=== PATIENT | male | born 1930 | race Caucasian/White ===

== ENCOUNTER 2017-04-08 23:06 | Inpatient (IN) | payer MEDICARE, OTHER ==
[~2017-04-08] VITALS: Ht 182.9 cm; Wt 103.5 kg
[2017-04-08 23:24] VITALS: BP 137/61; PULSE 69; RESP 18; TEMP 97.8; O2SAT 93
[2017-04-08] MEDS ORDERED: methylPREDNISolone SOD SUCC 125 MG/2 ML VIAL IVP ONE (23:30)
[2017-04-08] MEDS ORDERED: SODIUM CHLORIDE 0.9% FLUSH 10 ML FLUSH IVF PRN (23:30)
[2017-04-08 23:33] VITALS: RESP 18; O2SAT 93
[2017-04-08 23:45] LABS: AUTOMATED NEUTROPHIL # 4.4 TH/MM3 (1.8-7.7); BASOPHIL % 0.8 % (0.0-2.0); EOSINOPHIL # 0.1 TH/MM3 (0-0.4); EOSINOPHIL % 1.2 % (0.0-4.0); HEMATOCRIT 35.3 % (39.0-51.0); HEMO FLAGS DIFF FINAL; LYMPH % 11.4 % (9.0-44.0); LYMPHOCYTE # 0.6 TH/MM3 (1.0-4.8); MEAN CELL VOLUME 88.9 FL (80.0-100.0); MEAN CORPUSCULAR HEMOGLOBIN 27.3 PG (27.0-34.0); MEAN CORPUSCULAR HGB CONC 30.7 % (32.0-36.0); MONO % 8.9 % (0.0-8.0); NEUT % 77.7 % (16.0-70.0); PLATELET COUNT 158 TH/MM3 (150-450); RED BLOOD COUNT 3.97 MIL/MM3 (4.50-5.90); RED CELL DISTRIBUTION WIDTH 20.3 % (11.6-17.2); WHITE BLOOD COUNT 5.7 TH/MM3 (4.0-11.0)
[2017-04-08] MEDS ORDERED: DIGO0.12 PO (23:56)
[2017-04-08] MEDS ORDERED: PRAV20TA2 PO (23:56)
[2017-04-08] MEDS ORDERED: DULC10SU3 RECTAL (23:56)
[2017-04-08] MEDS ORDERED: MINER RECTAL (23:56)
[2017-04-08] MEDS ORDERED: LACTCAP8 PO (23:56)
[2017-04-08] MEDS ORDERED: ASPI-110 PO (23:56)
[2017-04-08] MEDS ORDERED: FURO40TA PO (23:56)
[2017-04-08] MEDS ORDERED: TAMS0.4C4 PO (23:56)
[2017-04-08] MEDS ORDERED: META28.34 PO (23:56)
[2017-04-08] MEDS ORDERED: VITA200C3 PO (23:56)
[2017-04-08] MEDS ORDERED: MILKSUS PO (23:56)
[2017-04-08] MEDS ORDERED: ATEN50TA PO (23:56)
[2017-04-08 23:57] LABS: APTT (PATIENT) 31.6 SEC (24.3-30.1); INTERNATIONAL NORMALIZED RATIO 1.5 RATIO; PROTHROMBIN TIME - PATIENT 16.6 SEC (9.8-11.6)
--- NOTE | 2017-04-08 23:57 | RADRPT ---
EXAM DATE/TIME: 04/08/2017 23:24 [facility] COMPARISON: No previous studies available for comparison. INDICATIONS : Patient experiencing shortness of breath for two days. MEDICAL HISTORY : Chronic obstructive pulmonary disease. Congestive heart failure. Pulmonary hypertension. SURGICAL HISTORY : Pacemaker. Quadruple bypass. ENCOUNTER: Initial ACUITY: 2 days PAIN SCORE: 0/10 LOCATION: Bilateral chest FINDINGS: Cardiomegaly, bilateral effusions and consolidation in the lower lobes. Sternotomy wires and a pacer device from a left subclavian transvenous approach noted. CONCLUSION: Bilateral moderate effusions and lower lobe consolidation. Romeo Ramos MD on April 08, 2017 at 23:56 Board Certified Radiologist. This report was verified electronically.
[2017-04-09] VITALS (12 sets, daily range): BP systolic 125–139; BP diastolic 65–75; PULSE 66–72; RESP 18–22; TEMP 97.6–97.8; O2SAT 91–95
[2017-04-09 00:03] LABS: ALT (GPT) 19 U/L (12-78); ANION GAP 3 MEQ/L (5-15); AST (GOT) 15 U/L (15-37); BICARBONATE 34.4 MEQ/L (21.0-32.0); BLOOD UREA NITROGEN 46 MG/DL (7-18); CHLORIDE 110 MEQ/L (98-107); GLOMERULAR FILTRATION RATE 62 ML/MIN (>89); MAGNESIUM 2.3 MG/DL (1.5-2.5); POTASSIUM 4.5 MEQ/L (3.5-5.1); SODIUM (NA) 147 MEQ/L (136-145)
[2017-04-09] MEDS: RESP: ALBUTEROL 2.5 MG/IPRATROPIUM 0.5 MG NEB (SCH) INH (00:03)
[2017-04-09 00:07] LABS: ALKALINE PHOSPHATASE 120 U/L (45-117); TOTAL BILIRUBIN ADULT 0.5 MG/DL (0.2-1.0)
[2017-04-09] MEDS ORDERED: FUROSEMIDE 40 MG/4 ML VIAL IV PUSH ONE (00:15)
[2017-04-09 00:27] LABS: CREATINE KINASE 31 U/L (39-308)
[2017-04-09] MEDS ORDERED: RESP: ALBUTEROL 2.5 MG/IPRATROPIUM 0.5 MG NEB (SCH) NEB ONE (01:15)
[2017-04-09] MEDS ORDERED: MAGNESIUM HYDROXIDE SUSP 30 ML CUP PO PRN (01:30)
[2017-04-09] MEDS ORDERED: BISACODYL 10 MG SUPP RECTAL PRN (01:30)
[2017-04-09] MEDS ORDERED: RESP: ALBUTEROL 2.5 MG/IPRATROPIUM 0.5 MG NEB (PRN) NEB (01:45)
--- NOTE | 2017-04-09 02:57 | PD ---
HPI Chief Complaint: Respiratory Distress Time Seen by Provider: 23:57 Travel History International Travel<30 days: No Contact w/Intl Traveler<30days: No Traveled to known affect area: No History of Present Illness HPI 87-year-old male presents with shortness of breath. He cannot give me an exact timeline but he states about a day. He denies any specific chest pain or other complaints but patient is poor historian. His family states that he has history where he gets swollen and will have difficulty with his breathing. They help supplement some history. Patient denies pain PFSH Past Medical History Narrative Medical By records Atrial Fibrillation: Yes Anxiety: Yes Cardiac Catheterization: Yes Cardiovascular Problems: Yes High Cholesterol: Yes Congestive Heart Failure: Yes COPD: Yes Coronary Artery Disease: Yes Diminished Hearing: Yes Hypertension: Yes Respiratory: Yes Past Surgical History Narrative Surgical By records Cardiac Surgery: Yes (pacer) Coronary Artery Bypass Graft: Yes Social History Alcohol Use: No Tobacco Use: No Substance Use: No Allergies-Medications (Allergen,Severity, Reaction): Coded Allergies: No Known Allergies (Unverified , 04/08/17) Reported Meds & Prescriptions Reported Meds & Active Scripts Active Reported Furosemide 40 Mg Tab 40 Mg PO DAILY Fleet Oil Enema (Mineral Oil) 118 Ml Enem 1 Ea RECTAL DIRECTED PRN Milk of Magnesia Liq (Magnesium Hydroxide) 400 Mg/5 Ml Susp 30 Ml PO DAILY PRN Dulcolax Supp (Bisacodyl) 10 Mg Supp 10 Mg RECTAL DAILY PRN Tamsulosin (Tamsulosin HCl) 0.4 Mg Cap 0.4 Mg PO HS Aspirin 81 (Aspirin) 81 Mg Tabdr 81 Mg PO MO, WE, FR Atenolol 50 Mg Tab 50 Mg PO DAILY Digoxin 0.125 Mg Tab 0.125 Mg PO DAILY Pravastatin 20 Mg Tab 20 Mg PO DAILY Vitamin E 200 Unit Cap 400 Units PO DAILY Metamucil Smooth Texture (Psyllium Hydrophilic Mucilloid) 28.3 % Pow 1 Scoop PO TID PRN 1 rounded TEASPOON in 8 oz of liquid at the first sign of irregularity. Probiotic (Lactobacillus Acidophilus) 1 Cap Cap 1 Cap PO DAILY Review of Systems ROS Limitations: Poor Historian Except as stated in HPI: all other systems reviewed are Neg Physical Exam Exam Limitations: Poor Historian Narrative GENERAL: Well-nourished, well-developed patient. SKIN: Warm and dry. HEAD: Normocephalic and atraumatic. EYES: No injection or drainage. ENT: No nasal drainage noted. NECK: Supple, trachea midline. CARDIOVASCULAR: Regular rate and rhythm RESPIRATORY: Expiratory wheezing bilaterally. No accessory muscle use. GASTROINTESTINAL: Abdomen soft, non-tender, nondistended. EXTREMITIES: Edema noted to bilateral lower extremities NEUROLOGICAL: Awake. Moves all extremities. Normal speech. Data Data Last Documented VS Vital Signs Date Time Temp Pulse Resp B/P Pulse Ox O2 Delivery O2 Flow Rate FiO2 04/09/17 01:00 72 18 139/66 92 Nasal Cannula 4 04/08/17 23:24 97.8 Orders Complete Blood Count With Diff (04/08/17 23:25) Comprehensive Metabolic Panel (04/08/17 23:25) B-Type Natriuretic Peptide (04/08/17 23:25) Act Partial Throm Time (Ptt) (04/08/17 23:25) Prothrombin Time / Inr (Pt) (04/08/17 23:25) Magnesium (Mg) (04/08/17 23:25) Ckmb (Isoenzyme) Profile (04/08/17 23:25) Troponin I (04/08/17 23:25) Iv Access Insert/Monitor (04/08/17 23:25) Electrocardiogram (04/08/17 23:25) Ecg Monitoring (04/08/17 23:25) Oximetry (04/08/17 23:25) Chest, Single Ap (04/08/17 23:25) Sodium Chloride 0.9% Flush (Ns Flush) (04/08/17 23:30) Methylprednisolone So Succ Inj (Solumedr (04/08/17 23:30) Albuterol-Ipratropium Neb (Duoneb Neb) (04/08/17 23:30) Furosemide Inj (Lasix Inj) (04/09/17 00:15) Admit Order (Ed Use Only) (04/09/17 01:00) Labs Laboratory Tests Test 04/08/17 23:30 White Blood Count 5.7 TH/MM3 Red Blood Count 3.97 MIL/MM3 Hemoglobin 10.8 GM/DL Hematocrit 35.3 % Mean Corpuscular Volume 88.9 FL Mean Corpuscular Hemoglobin 27.3 PG Mean Corpuscular Hemoglobin 30.7 % Concent Red Cell Distribution Width 20.3 % Platelet Count 158 TH/MM3 Mean Platelet Volume 8.8 FL Neutrophils (%) (Auto) 77.7 % Lymphocytes (%) (Auto) 11.4 % Monocytes (%) (Auto) 8.9 % Eosinophils (%) (Auto) 1.2 % Basophils (%) (Auto) 0.8 % Neutrophils # (Auto) 4.4 TH/MM3 Lymphocytes # (Auto) 0.6 TH/MM3 Monocytes # (Auto) 0.5 TH/MM3 Eosinophils # (Auto) 0.1 TH/MM3 Basophils # (Auto) 0.0 TH/MM3 CBC Comment DIFF FINAL Differential Comment Prothrombin Time 16.6 SEC Prothromb Time International 1.5 RATIO Ratio Activated Partial 31.6 SEC Thromboplast Time Sodium Level 147 MEQ/L Potassium Level 4.5 MEQ/L Chloride Level 110 MEQ/L Carbon Dioxide Level 34.4 MEQ/L Anion Gap 3 MEQ/L Blood Urea Nitrogen 46 MG/DL Creatinine 1.12 MG/DL Estimat Glomerular Filtration 62 ML/MIN Rate Random Glucose 82 MG/DL Calcium Level 7.5 MG/DL Magnesium Level 2.3 MG/DL Total Bilirubin 0.5 MG/DL Aspartate Amino Transf 15 U/L (AST/SGOT) Alanine Aminotransferase 19 U/L (ALT/SGPT) Alkaline Phosphatase 120 U/L Total Creatine Kinase 31 U/L Troponin I 0.02 NG/ML B-Type Natriuretic Peptide 870 PG/ML Total Protein 6.1 GM/DL Albumin 2.7 GM/DL [facility] Medical Decision Making Medical Screen Exam Complete: Yes Emergency Medical Condition: Yes Medical Record Reviewed: Yes (past history confirm) Interpretation(s) CBC & BMP Diagram 04/08/17 23:30 Last 24 hours Impressions Chest X-Ray 04/08/17 5163 Signed Impressions: Service Date/Time: Saturday, April 08, 2017 23:24 - CONCLUSION: Bilateral moderate effusions and lower lobe consolidation. Romeo Ramos MD Patient has no fever or white count, effusions likely from CHF Differential Diagnosis CHF exacerbation, pneumonia, COPD exacerbation, renal failure, anemia Narrative Course Will check blood work, chest x-ray and dose with DuoNeb and Solu-Medrol and reevaluate After evaluation chest x-ray Lasix added on Patient and family updated and agree to admission, will place in cic for close monitoring Physician Communication Physician Communication dr lozada states to admit to dr mcfadden Diagnosis Primary Impression: CHF exacerbation Qualified Code: I50.9 - Acute on chronic congestive heart failure, unspecified congestive heart failure type Additional Impression: COPD exacerbation Admitting Information Admitting Physician Requests: Admit Brynn Bailey MD Apr 09, 2017 02:57
[2017-04-09] MEDS: FUROSEMIDE 40 MG/4 ML VIAL IV PUSH SCH ×2 (10:10→18:02)
[2017-04-09] MEDS: ATENOLOL 50 MG TAB PO SCH (10:11)
[2017-04-09] MEDS: PRAVASTATIN SOD 20 MG TAB PO SCH (10:11)
[2017-04-09] MEDS: TAMSULOSIN HCL 0.4 MG CAP PO SCH (10:11)
[2017-04-09] MEDS: DIGOXIN 0.125 MG TAB PO SCH (10:11)
[2017-04-09] MEDS: POTASSIUM CHLORIDE 10 MEQ CAP PO SCH ×2 (11:14→22:46)
--- NOTE | 2017-04-09 11:51 | HHI.HP ---
HPI [facility] Primary Care Physician Unknown Admission Diagnosis chf and copd exacerbation Diagnoses: Travel History International Travel<30 Days: No Contact w/Intl Traveler <30 Da: No Traveled to Known Affected Are: No History of Present Illness Is a very pleasant 87-year-old male who is well-known to the undersigned. The patient has a long history of congestive heart failure for which he sees attractions associate Dr. Escobar. He also has a history of COPD and a former smoking. He was seen by the undersigned earlier today in room C 33 at the emergency department at [place]. His son was at his bedside. The son was called from the custodial late last night because the patient was getting more and more confused and he was getting desaturated. He has been coughing with yellow sputum. He was brought into the emergency department at [place]. He was found to be in acute chronic systolic heart failure, massive fluid retention, bilateral pleural effusions and lower lobe consolidations on chest x- ray. He was started on diuretics and on antibiotics. He is very sleepy but arousable. He also is complaining of left lower quadrant abdominal pain. No documented fever. His CODE STATUS is DO NOT RESUSCITATE. Review of Systems Other Extremely weak, fatigued, dyspnea, abdominal pain mostly in the left lower quadrant, of yellow sputum, unable to ambulate at this time, 10 systems reviewed otherwise negative Past Family Social History Past Medical History Systolic heart failure Fluid retention Hard of hearing Stroke Hyperlipidemia Constipation Atrial fibrillation COPD Anxiety Deconditioning Inability to ambulate recently Past Surgical History CABG Pacemaker placement Reported Medications Reported Meds & Active Scripts Active Reported Furosemide 40 Mg Tab 40 Mg PO DAILY Fleet Oil Enema (Mineral Oil) 118 Ml Enem 1 Ea RECTAL DIRECTED PRN Milk of Magnesia Liq (Magnesium Hydroxide) 400 Mg/5 Ml Susp 30 Ml PO DAILY PRN Dulcolax Supp (Bisacodyl) 10 Mg Supp 10 Mg RECTAL DAILY PRN Tamsulosin (Tamsulosin HCl) 0.4 Mg Cap 0.4 Mg PO HS Aspirin 81 (Aspirin) 81 Mg Tabdr 81 Mg PO MO, WE, FR Atenolol 50 Mg Tab 50 Mg PO DAILY Digoxin 0.125 Mg Tab 0.125 Mg PO DAILY Pravastatin 20 Mg Tab 20 Mg PO DAILY Vitamin E 200 Unit Cap 400 Units PO DAILY Metamucil Smooth Texture (Psyllium Hydrophilic Mucilloid) 28.3 % Pow 1 Scoop PO TID PRN 1 rounded TEASPOON in 8 oz of liquid at the first sign of irregularity. Probiotic (Lactobacillus Acidophilus) 1 Cap Cap 1 Cap PO DAILY Allergies: Coded Allergies: No Known Allergies (Unverified , 04/08/17) Family History Reviewed but not contributory Social History Former smoker, no current smoking, no excessive alcohol, no illicit drug use Physical Exam Vital Signs Vital Signs Date Time Temp Pulse Resp B/P Pulse Ox O2 Delivery O2 Flow Rate FiO2 04/09/17 08:00 69 22 135/65 95 Nasal Cannula 4 04/09/17 02:51 92 Nasal Cannula 4.00 04/09/17 01:00 72 18 139/66 92 Nasal Cannula 4 04/08/17 23:33 18 93 Nasal Cannula 4 04/08/17 23:24 97.8 69 18 137/61 93 Physical Exam GENERAL: This is a pleasant, overweight, massive lower extremity edema also edema in the flanks, poorly-nourished, lethargic, well-developed patient, in no apparent distress. SKIN: No rashes, ecchymoses or lesions. Cool and dry. HEAD: Atraumatic. Normocephalic. No temporal or scalp tenderness. EYES: Pupils equal round and reactive. Extraocular motions intact. No scleral icterus. No injection or drainage. ENT: Nose without bleeding, purulent drainage or septal hematoma. Throat without erythema, tonsillar hypertrophy or exudate. Uvula midline. Airway patent. NECK: Trachea midline. No JVD or lymphadenopathy. Supple, nontender, no meningeal signs. CARDIOVASCULAR: Regular rate and rhythm , murmur present RESPIRATORY: Bilateral crackles with reduced air entry to the bases GASTROINTESTINAL: Abdomen soft, tender in both lower quadrants left more than right, bowel sounds are positive MUSCULOSKELETAL: Extremities severe edema especially lower extremities NEUROLOGICAL: Awake and alert. Cranial nerves II through XII intact. Laboratory Laboratory Tests Test 04/08/17 23:30 White Blood Count 5.7 Red Blood Count 3.97 Hemoglobin 10.8 Hematocrit 35.3 Mean Corpuscular Volume 88.9 Mean Corpuscular Hemoglobin 27.3 Mean Corpuscular Hemoglobin 30.7 Concent Red Cell Distribution Width 20.3 Platelet Count 158 Mean Platelet Volume 8.8 Neutrophils (%) (Auto) 77.7 Lymphocytes (%) (Auto) 11.4 Monocytes (%) (Auto) 8.9 Eosinophils (%) (Auto) 1.2 Basophils (%) (Auto) 0.8 Neutrophils # (Auto) 4.4 Lymphocytes # (Auto) 0.6 Monocytes # (Auto) 0.5 Eosinophils # (Auto) 0.1 Basophils # (Auto) 0.0 CBC Comment DIFF FINAL Differential Comment Prothrombin Time 16.6 Prothromb Time International 1.5 Ratio Activated Partial 31.6 Thromboplast Time Sodium Level 147 Potassium Level 4.5 Chloride Level 110 Carbon Dioxide Level 34.4 Anion Gap 3 Blood Urea Nitrogen 46 Creatinine 1.12 Estimat Glomerular Filtration 62 Rate Random Glucose 82 Calcium Level 7.5 Magnesium Level 2.3 Total Bilirubin 0.5 Aspartate Amino Transf 15 (AST/SGOT) Alanine Aminotransferase 19 (ALT/SGPT) Alkaline Phosphatase 120 Total Creatine Kinase 31 Troponin I 0.02 B-Type Natriuretic Peptide 870 Total Protein 6.1 Albumin 2.7 Result Diagram: 04/08/17 2330 04/08/17 233 Imaging Electrocardiogram showed paced rhythm with a right bundle branch block Last 24 hours Impressions Abdomen/Pelvis CT 04/09/17 0000 Signed Impressions: Service Date/Time: Sunday, April 09, 2017 14:38 - CONCLUSION: 1. Bilateral pleural effusions, bibasilar consolidation and anasarca. 2. Nonobstructing right renal stone. 3. Probable right adrenal adenoma. Maki Trimble MD Chest X-Ray 04/08/175 Signed Impressions: Service Date/Time: Saturday, April 08, 2017 23:24 - CONCLUSION: Bilateral moderate effusions and lower lobe consolidation. Romeo Ramos MD Assessment and Plan Assessment and Plan Assessment Acute on chronic systolic heart failure Bilateral pneumonia Bilateral pleural effusion Severe fluid retention Abdominal pain of an unclear etiology Management Patient has been admitted to telemetry Lasix 40 mg IV every 12 hours is ordered Albumin 12.5 gram IV every 12 hours is ordered Supplemental oxygen When necessary morphine The case was discussed at length with the patient's son his bedside The son would like to have a hospice consultation The patient has been going around in circles recently with recurrent frequent admissions for almost identical presentations With the current difficult to control of Taxol heart failure, also very poor quality of life The case was discussed with patient's nurse 45 minutes spent Discussed With: Nurse, Family Blossom Mckinney MD 15, 2017 11:50
--- NOTE | 2017-04-09 12:41 | EKG ---
Date Performed: 04/09/2017 Time Performed: 01:40:27 PTAGE: 87 years EKG: ELECTRONIC ATRIAL PACEMAKER RIGHT BUNDLE BRANCH BLOCK ABNORMAL ECG NO PREVIOUS TRACING DOCTOR: Bryson Mohan Interpretating Date/Time 04/09/2017 12:39:03
[2017-04-09] MEDS: AZITHROMYCIN INJ 500 MG in SODIUM CHLOR 0.9% 250 ML INJ 250 ML IV SCH (13:03)
[2017-04-09] MEDS: MORPHINE SULFATE 8 MG/ML INJ IV PUSH PRN ×2 (13:59→22:50)
[2017-04-09] MEDS: cefTRIAXone INJ 1,000 MG in SODIUM CHLORIDE 0.9% INJ 100 ML IV SCH (14:00)
--- NOTE | 2017-04-09 15:12 | RADRPT ---
EXAM DATE/TIME: 04/09/2017 14:38 [facility] COMPARISON: No previous studies available for comparison. INDICATIONS : Abdominal pain ORAL CONTRAST: No oral contrast ingested. RADIATION DOSE: 12.41 CTDIvol (mGy) MEDICAL HISTORY : Hypertension. Congestive heart failure. SURGICAL HISTORY : None. ENCOUNTER: Initial ACUITY: 1 day PAIN SCALE: 5/10 LOCATION: diffuse abdomen TECHNIQUE: Volumetric scanning of the abdomen and pelvis was performed. Using automated exposure control and ad justment of the mA and/or kV according to patient size, radiation dose was kept as low as reasonably achievable to obtain optimal diagnostic quality images. DICOM format image data is available electro nically for review and comparison. FINDINGS: CT Abdomen: The liver, spleen, pancreas, left kidney, left adrenal are unremarkable. There is no evid ence for any appreciable pathological adenopathy, free fluid, or bowel obstruction. Chronic vascular calcifications are present involving the aorta, iliac arteries without any significant stenosis or a neurysmal dilatations for technique. Approximate 4-5 mm nonobstructing stone is present in the right kidney. Moderate bilateral pleural effusions and bibasilar consolidation is seen. Approximate 1.7 cm right adrenal nodule is present probably an adenoma. CT pelvis: There is no evidence for mass, abscess formation, or any significant adenopathy within the pelvis. The prostate gland is inhomogeneous and measures 4.1 x 5.7 cm in AP and transverse diameters and nonspecific. There is moderate amount of stool throughout the colon. There is mild diffuse anasa rca. There are degenerative changes and possible bulging discs in the lower lumbosacral spine not mayank quately characterized. CONCLUSION: 1. Bilateral pleural effusions, bibasilar consolidation and anasarca. 2. Nonobstructing right renal stone. 3. Probable right adrenal adenoma. Maki Trimble MD on April 09, 2017 at 15:07 Board Certified Radiologist. This report was verified electronically.
[2017-04-09] MEDS: ALBUMIN HUMAN 25% 12.5 GM/50 ML BAGP IV SCH (18:02)
--- NOTE | 2017-04-09 22:41 | MB ---
cc: MADALYN RAMIREZ MD, ASHRAF S. MD DATE OF CONSULTATION 04/09/17 REASON FOR CONSULTATION Congestive heart failure, acute on top of chronic systolic heart failure. HISTORY OF PRESENT ILLNESS An 87-year-old gentleman with I am presuming significant degree of cardiomyopathy. I do not have any prior cardiac workup available to me at the present time, but he has had recurrent bouts of congestive heart failure according to the admitting note. He has history of COPD. He apparently was brought from his half-way after the son was called because he has been having cough which yellowish sputum and being more confused and more short of breath. He had a chest x-ray that revealed pulmonary congestion with pleural effusions and he had CT of the abdomen because of complaints of abdominal pains and this showed also ascites and he has been having increasing lower extremity edema. He is currently lying in bed and confused and cannot answer my questions. He has stated to his son that he is "ready to go". He is a DNR and the son has requested a Hospice consult. Most of the history is being obtained from the charts and the recent notes. PAST MEDICAL AND SURGICAL HISTORY As mentioned above. 1. History of hearing deficit. 2. History of CVA, 3. Hyperlipidemia, 4. Constipation, 5. Paroxysmal atrial fibrillation. He is status post pacing. 6. History of coronary artery disease prior coronary artery bypass graft surgery. 7. Anxiety 8. Deconditioning. 9. Very poor quality of life lately. MEDICATIONS At home includes 1. Lasix 40 mg p.o. daily 2. Milk of Magnesium 3. Tamsulosin 0.4 mg q.h.s. 4. Ecotrin 81 mg p.o. daily. 5. Atenolol 50 mg p.o. daily. 6. Digoxin 0.125 mg p.o. daily. 7. Pravastatin 20 mg p.o. daily. 8. Metamucil 9. Vitamin E. ALLERGIES NO KNOWN DRUG ALLERGIES. FAMILY HISTORY Noncontributory according to the notes. SOCIAL HISTORY Used to smoke in the past but stopped many years ago. No recent ETOH abuse or history of recreational drug abuse. PHYSICAL EXAMINATION GENERAL: Drowsy, somewhat confused elderly gentleman lying in bed in moderate respiratory distress. VITAL SIGNS: Blood pressure is 130/68 mmHg, pulse of 90 beats per minute and regular, respiration at 22 per minute, afebrile. HEENT: Head is normocephalic. Throat is within normal limits. NECK: Supple. Borderline jugular venous distension noted. LUNGS: Diminished air entry at the bases with few rhonchi bilaterally. CARDIOVASCULAR: S1-S2 are distant with 2/6 pansystolic murmur across the left precordium with an S4 gallop. ABDOMEN: Distended and abdominal wall edema with shifting dullness noted. Some mild diffuse tenderness and normoactive bowel sounds. EXTREMITIES: 3-4+ pitting edema in both lower extremities and wrapping is on. CARDIOLOGY STUDIES EKG shows atrial pacing with ventricular tracking and right bundle-branch block configuration with no previous tracing to compare. LABORATORY DATA White count 5.7, hemoglobin of 10.8 and a platelet count of 158. Sodium 147, potassium 4.5, BUN of 46, creatinine 1.12. CPK of 31. Troponin I is 0.02 and a BNP of 870. IMAGING STUDIES Chest x-ray shows bilateral moderate effusions and lower lobe consolidation as well. CT of the abdomen and pelvis shows bilateral pleural effusions and bibasilar consolidation and anasarca, right adrenal adenoma. ASSESSMENT/RECOMMENDATIONS 1. Acute on chronic systolic heart failure according to the notes. 2. failure to thrive 3. Poor quality of life 4. Pneumonia 5. DNR status. 6. Hospice requested. At this point, with hospice being requested which I would agree according to the history that I am reading that his quality of life has been deteriorating and this was per his wishes as well. At this point, I would try to keep him comfortable and proceed with hospice. We will be available on an as-needed basis. MD CIARRA Maza/ /10:05 PM /10:25 PM
[2017-04-10] VITALS (26 sets, daily range): BP systolic 110–147; BP diastolic 58–79; PULSE 68–73; RESP 17–22; TEMP 97–98.8; O2SAT 86–94
[2017-04-10] MEDS: MORPHINE SULFATE 8 MG/ML INJ IV PUSH PRN ×3 (06:43→20:53)
[2017-04-10] MEDS: ALBUMIN HUMAN 25% 12.5 GM/50 ML BAGP IV SCH ×2 (06:44→18:14)
[2017-04-10 07:19] LABS: BICARBONATE 37.2 MEQ/L (21.0-32.0); POTASSIUM 5.6 MEQ/L (3.5-5.1)
[2017-04-10] MEDS: FUROSEMIDE 40 MG/4 ML VIAL IV PUSH SCH ×2 (08:34→18:16)
[2017-04-10] MEDS: PRAVASTATIN SOD 20 MG TAB PO SCH (08:35)
[2017-04-10] MEDS: DIGOXIN 0.125 MG TAB PO SCH (08:35)
[2017-04-10] MEDS: ATENOLOL 50 MG TAB PO SCH (08:35)
[2017-04-10] MEDS: POTASSIUM CHLORIDE 10 MEQ CAP PO SCH (08:35)
--- NOTE | 2017-04-10 12:45 | EKG ---
Date Performed: 04/09/2017 Time Performed: 08:04:47 PTAGE: 87 years EKG: ELECTRONIC ATRIAL PACEMAKER RIGHT BUNDLE BRANCH BLOCK Compared to prior tracing no signific ant change ABNORMAL ECG PREVIOUS TRACING : 04/09/2017 01.40 DOCTOR: Bryson Mohan Interpretating Date/Time 04/10/2017 12:36:52
[2017-04-10] MEDS: AZITHROMYCIN INJ 500 MG in SODIUM CHLOR 0.9% 250 ML INJ 250 ML IV SCH (13:06)
[2017-04-10] MEDS: cefTRIAXone INJ 1,000 MG in SODIUM CHLORIDE 0.9% INJ 100 ML IV SCH (13:07)
--- NOTE | 2017-04-10 16:27 | HHI.PR ---
Subjective Interval History Sleepy, arousable, verbal, feeling better however still coughing quite frequently, was in pain earlier, the location of pain is not clear, likely abdominal pain, received IV morphine Review of Systems Constitutional Constitutional Remarks As detailed above, massive edema in the legs and scrotum however relatively speaking this is improving, not ambulating, 10 systems reviewed otherwise negative Vitals/Results Intake & Output 04/09/17 04/09/17 04/10/17 15:00 23:00 07:00 Intake Total 200 ml Balance 200 ml Intake Oral 0 ml IV Total 200 ml # Voids 3 # Bowel Movements 1 Vital Signs Vital Signs Date Time Temp Pulse Resp B/P Pulse Ox O2 Delivery O2 Flow Rate FiO2 04/10/17 16:00 72 04/10/17 15:00 98.2 73 17 113/58 90 04/10/17 15:00 70 04/10/17 15:00 90 Nasal Cannula 5.00 04/10/17 14:06 88 Nasal Cannula 5.00 04/10/17 14:00 69 04/10/17 13:00 70 04/10/17 12:00 71 04/10/17 11:00 90 Nasal Cannula 4.00 04/10/17 11:00 98.4 70 18 118/69 90 04/10/17 11:00 69 04/10/17 10:00 69 04/10/17 09:00 71 04/10/17 08:00 72 04/10/17 07:00 69 04/10/17 07:00 98.8 70 20 110/67 92 04/10/17 07:00 92 Nasal Cannula 4.00 04/10/17 05:02 97.5 73 22 120/60 93 04/10/17 03:00 70 04/10/17 01:00 68 04/10/17 00:00 68 04/09/17 23:00 97.8 70 20 135/75 91 04/09/17 23:00 68 04/09/17 22:00 68 04/09/17 21:00 70 04/09/17 20:00 69 04/09/17 19:37 97.7 69 20 130/68 91 04/09/17 19:00 69 04/09/17 18:00 69 04/09/17 17:00 69 CBC/BMP: 04/08/17 2330 04/10/17 0624 Lab Results Laboratory Tests Test 04/10/17 06:24 Sodium Level 144 MEQ/L Potassium Level 5.6 MEQ/L Chloride Level 106 MEQ/L Carbon Dioxide Level 37.2 MEQ/L Anion Gap 1 MEQ/L Blood Urea Nitrogen 64 MG/DL Creatinine 1.41 MG/DL Estimat Glomerular Filtration 47 ML/MIN Rate Random Glucose 87 MG/DL Calcium Level 9.0 MG/DL Troponin I 0.02 NG/ML Physical Exam General General Appearance: Comfortable, Sleeping Eyes Eye Exam: Pupils Reactive Ears & Nose Ears & Nose Exam: Nasal Mucosa [place] Throat Throat Exam: Oral Mucosa [place] & Moist Neck Neck Exam: Trachea Midline Pulmonary Resp Exam: Crackles, Rhonchi Cardiology CV Exam: Irregular Gastrointestinal/Abdomen GI Exam: Soft, Non-Tender, Bowel Sounds Present Musculoskeletal MS Exam: Atrophy Extremeties Extremities Exam: Pitting Edema Neurologic Neuro Exam: Moving All Extremities, Stuporous Psychiatric Psych Exam: Appropriate Responses Assessment/Plan Assessment/Plan Assessment Acute on chronic systolic heart failure Bilateral pneumonia Bilateral pleural effusion Severe fluid retention Abdominal pain of an unclear etiology Management Continue telemetry Lasix 40 mg IV every 12 hours Albumin 12.5 gram IV every 12 hours Continue intravenous antibiotics Supplemental oxygen When necessary morphine The case was discussed at length with the patient's son his bedside, again today hospice consultation Follow electrolytes, replace as needed Follow hemoglobin level Follow renal indices The case was discussed with patient's nurse 35 minutes spent Discussed Condition with: Blossom Perdue MD Apr 10, 2017 16:27
[2017-04-10] MEDS: TAMSULOSIN HCL 0.4 MG CAP PO SCH (20:52)
[2017-04-10] MEDS: HEPARIN SODIUM - SQ 10,000 UNITS/ML VIAL SQ SCH (20:56)
[2017-04-11] VITALS (22 sets, daily range): BP systolic 109–153; BP diastolic 56–89; PULSE 63–73; RESP 18–24; TEMP 97–98.9; O2SAT 88–96
[2017-04-11 07:00] LABS: AUTOMATED NEUTROPHIL # 4.5 TH/MM3 (1.8-7.7); BASOPHIL % 0.5 % (0.0-2.0); EOSINOPHIL % 0.3 % (0.0-4.0); HEMATOCRIT 36.5 % (39.0-51.0); HEMO FLAGS DIFF FINAL; LYMPH % 15.1 % (9.0-44.0); LYMPHOCYTE # 0.9 TH/MM3 (1.0-4.8); MEAN CELL VOLUME 88.6 FL (80.0-100.0); MEAN CORPUSCULAR HEMOGLOBIN 27.8 PG (27.0-34.0); MEAN CORPUSCULAR HGB CONC 31.4 % (32.0-36.0); MONO % 12.2 % (0.0-8.0); NEUT % 71.9 % (16.0-70.0); PLATELET COUNT 145 TH/MM3 (150-450); RED BLOOD COUNT 4.13 MIL/MM3 (4.50-5.90); RED CELL DISTRIBUTION WIDTH 20.7 % (11.6-17.2); WHITE BLOOD COUNT 6.2 TH/MM3 (4.0-11.0)
[2017-04-11 07:23] LABS: BICARBONATE 35.4 MEQ/L (21.0-32.0); MAGNESIUM 2.8 MG/DL (1.5-2.5); POTASSIUM 5.4 MEQ/L (3.5-5.1)
[2017-04-11 07:26] LABS: INDIRECT BILIRUBIN 0.3 MG/DL (0.0-0.8); TOTAL BILIRUBIN ADULT 0.5 MG/DL (0.2-1.0)
[2017-04-11] MEDS: ATENOLOL 50 MG TAB PO SCH (09:00)
[2017-04-11] MEDS: DIGOXIN 0.125 MG TAB PO SCH ×2 (09:00→09:40)
[2017-04-11] MEDS: HEPARIN SODIUM - SQ 10,000 UNITS/ML VIAL SQ SCH (09:41)
[2017-04-11] MEDS: FUROSEMIDE 40 MG/4 ML VIAL IV PUSH SCH (09:41)
[2017-04-11] MEDS: MORPHINE SULFATE 8 MG/ML INJ IV PUSH PRN (09:42)
[2017-04-11] MEDS: PRAVASTATIN SOD 20 MG TAB PO SCH (09:43)
--- NOTE | 2017-04-11 14:04 | HHI.PR ---
Subjective Interval History Sleeping, arousable, intermittent cough, extremely weak, mildly confused Review of Systems Constitutional Constitutional Remarks As detailed above, edema in the legs and scrotum however relatively this is improving, not ambulating, 10 systems reviewed otherwise negative Vitals/Results Intake & Output 04/10/17 04/10/17 04/11/17 15:00 23:00 07:00 Intake Total 240 ml 590 ml 440 ml Balance 240 ml 590 ml 440 ml Intake Oral 240 ml 240 ml 240 ml IV Total 350 ml 200 ml # Voids 3 4 3 # Bowel Movements 2 2 2 Vital Signs Vital Signs Date Time Temp Pulse Resp B/P Pulse Ox O2 Delivery O2 Flow Rate FiO2 04/11/17 13:01 68 04/11/17 12:00 68 04/11/17 11:01 91 Nasal Cannula 5.00 04/11/17 11:01 98.2 69 22 153/89 91 04/11/17 11:00 68 04/11/17 10:00 68 04/11/17 09:01 98.0 63 24 150/85 92 04/11/17 09:01 92 Nasal Cannula 5.00 04/11/17 09:00 68 04/11/17 08:00 68 04/11/17 07:01 69 04/11/17 05:00 68 04/11/17 04:30 98.2 73 18 130/67 96 04/11/17 04:00 68 04/11/17 03:01 90 5.00 04/11/17 03:00 69 04/11/17 02:00 68 04/11/17 01:00 68 04/11/17 00:00 68 04/11/17 00:00 97.0 72 20 136/56 88 04/10/17 23:58 90 5.00 04/10/17 23:00 72 04/10/17 22:39 68 04/10/17 22:35 94 Nasal Cannula 6.00 04/10/17 22:00 68 04/10/17 21:00 68 04/10/17 20:00 70 04/10/17 19:42 88 5.00 04/10/17 19:38 92 Nasal Cannula 5.00 04/10/17 19:22 90 04/10/17 19:00 69 04/10/17 19:00 97.0 70 22 147/79 86 04/10/17 18:00 69 04/10/17 17:00 70 04/10/17 16:00 72 04/10/17 15:00 98.2 73 17 113/58 90 04/10/17 15:00 70 04/10/17 15:00 90 Nasal Cannula 5.00 04/10/17 14:06 88 Nasal Cannula 5.00 CBC/BMP: 04/11/17 0535 04/11/17 0535 Lab Results Laboratory Tests Test 04/10/17 04/11/17 17:30 05:35 Potassium Level 5.4 MEQ/L 5.4 MEQ/L White Blood Count 6.2 TH/MM3 Red Blood Count 4.13 MIL/MM3 Hemoglobin 11.5 GM/DL Hematocrit 36.5 % Mean Corpuscular Volume 88.6 FL Mean Corpuscular Hemoglobin 27.8 PG Mean Corpuscular Hemoglobin 31.4 % Concent Red Cell Distribution Width 20.7 % Platelet Count 145 TH/MM3 Mean Platelet Volume 9.3 FL Neutrophils (%) (Auto) 71.9 % Lymphocytes (%) (Auto) 15.1 % Monocytes (%) (Auto) 12.2 % Eosinophils (%) (Auto) 0.3 % Basophils (%) (Auto) 0.5 % Neutrophils # (Auto) 4.5 TH/MM3 Lymphocytes # (Auto) 0.9 TH/MM3 Monocytes # (Auto) 0.8 TH/MM3 Eosinophils # (Auto) 0.0 TH/MM3 Basophils # (Auto) 0.0 TH/MM3 CBC Comment DIFF FINAL Differential Comment Sodium Level 148 MEQ/L Chloride Level 106 MEQ/L Carbon Dioxide Level 35.4 MEQ/L Anion Gap 7 MEQ/L Blood Urea Nitrogen 69 MG/DL Creatinine 1.57 MG/DL Estimat Glomerular Filtration 42 ML/MIN Rate Random Glucose 53 MG/DL Calcium Level 8.8 MG/DL Phosphorus Level 4.7 MG/DL Magnesium Level 2.8 MG/DL Total Bilirubin 0.5 MG/DL Direct Bilirubin 0.2 MG/DL Indirect Bilirubin 0.3 MG/DL Aspartate Amino Transf 14 U/L (AST/SGOT) Alanine Aminotransferase 15 U/L (ALT/SGPT) Alkaline Phosphatase 114 U/L Total Protein 6.7 GM/DL Albumin 3.2 GM/DL Physical Exam General General Appearance: Comfortable, Sleeping Eyes Eye Exam: Pupils Reactive Ears & Nose Ears & Nose Exam: Nasal Mucosa [place] Throat Throat Exam: Oral Mucosa [place] & Moist Neck Neck Exam: Trachea Midline Pulmonary Resp Exam: Crackles, Rhonchi Cardiology CV Exam: Irregular Gastrointestinal/Abdomen GI Exam: Soft, Non-Tender, Bowel Sounds Present Musculoskeletal MS Exam: Atrophy Extremeties Extremities Exam: Pitting Edema Neurologic Neuro Exam: Moving All Extremities, Stuporous Psychiatric Psych Exam: Appropriate Responses Assessment/Plan Assessment/Plan Assessment Hypoglycemia Acute on chronic systolic heart failure Bilateral pneumonia Bilateral pleural effusion Severe fluid retention Abdominal pain of an unclear etiology Management IV dextrose Continue telemetry Reduce Lasix to 20 mg IV every 12 hours Albumin 12.5 gram IV every 12 hours Continue intravenous antibiotics Supplemental oxygen When necessary morphine Waiting for hospice consultation Follow electrolytes, replace as needed Follow hemoglobin level Follow renal indices Discussed with patient 35 minutes spent Blossom Mckinney MD Apr 11, 2017 14:04
[2017-04-11] MEDS: cefTRIAXone INJ 1,000 MG in SODIUM CHLORIDE 0.9% INJ 100 ML IV SCH (14:18)
[2017-04-11] MEDS: AZITHROMYCIN INJ 500 MG in SODIUM CHLOR 0.9% 250 ML INJ 250 ML IV SCH (14:19)
[2017-04-11] MEDS ORDERED: SODIUM CHLORIDE 23.4% INJ 77 MEQ in DEXTROSE 10% INJ 1,000 ML IV SCH (15:00)
[2017-04-11] MEDS ORDERED: FUROSEMIDE 40 MG/4 ML VIAL IV PUSH SCH (18:00)
--- NOTE | 2017-04-12 14:08 | HHI.DS ---
Discharge Summary Admission Date Apr 09, 2017 at 01:02 Discharge Date: Apr 11, 2017 Admitting Diagnosis chf and copd exacerbation (1) COPD exacerbation (2) CHF exacerbation (3) Hyperkalemia (4) Hypoglycemia (5) Pleural effusion (6) Renal insufficiency (7) Fluid retention (8) Abdominal pain (9) PNA (pneumonia) CBC/BMP: 04/11/17 0535 04/11/17 0535 Significant Findings Laboratory Tests Test 04/10/17 04/10/17 04/11/17 06:24 17:30 05:35 Potassium Level 5.6 MEQ/L 5.4 MEQ/L 5.4 MEQ/L (3.5-5.1) (3.5-5.1) (3.5-5.1) Carbon Dioxide Level 37.2 MEQ/L 35.4 MEQ/L (21.0-32.0) (21.0-32.0) Anion Gap 1 MEQ/L (5-15) Blood Urea Nitrogen 64 MG/DL (7-18) 69 MG/DL (7-18) Creatinine 1.41 MG/DL 1.57 MG/DL (0.60-1.30) (0.60-1.30) Estimat Glomerular Filtration 47 ML/MIN (>89) 42 ML/MIN (>89) Rate Red Blood Count 4.13 MIL/MM3 (4.50-5.90) Hemoglobin 11.5 GM/DL (13.0-17.0) Hematocrit 36.5 % (39.0-51.0) Mean Corpuscular Hemoglobin 31.4 % Concent (32.0-36.0) Red Cell Distribution Width 20.7 % (11.6-17.2) Platelet Count 145 TH/MM3 (150-450) Neutrophils (%) (Auto) 71.9 % (16.0-70.0) Monocytes (%) (Auto) 12.2 % (0.0-8.0) Lymphocytes # (Auto) 0.9 TH/MM3 (1.0-4.8) Sodium Level 148 MEQ/L (136-145) Random Glucose 53 MG/DL (74-106) Magnesium Level 2.8 MG/DL (1.5-2.5) Aspartate Amino Transf 14 U/L (15-37) (AST/SGOT) Albumin 3.2 GM/DL (3.4-5.0) Imaging Last Impressions Abdomen/Pelvis CT 04/09/17 0000 Signed Impressions: Service Date/Time: Sunday, April 09, 2017 14:38 - CONCLUSION: 1. Bilateral pleural effusions, bibasilar consolidation and anasarca. 2. Nonobstructing right renal stone. 3. Probable right adrenal adenoma. Maki Trimble MD Chest X-Ray 04/08/17 2325 Signed Impressions: Service Date/Time: Saturday, April 08, 2017 23:24 - CONCLUSION: Bilateral moderate effusions and lower lobe consolidation. Romeo Ramos MD Hospital Course This a very pleasant 87-year-old male who is well-known to the undersigned. The patient has a long history of congestive heart failure for which he sees tube pusher Dr. Escobar. He also has a history of COPD and a former smoking. He was seen by the undersigned at the emergency department at [place]. His son was at his bedside. The son was called from the alf late last night because the patient was getting more and more confused and he was getting desaturated. He has been coughing with yellow sputum. He was brought into the emergency department at [place]. He was found to be in acute on chronic systolic heart failure, massive fluid retention, bilateral pleural effusions and lower lobe consolidations on chest x-ray. He was started on diuretics and on antibiotics. He was very sleepy but arousable. He was also is complaining of left lower quadrant abdominal pain. No documented fever. His CODE STATUS was DO NOT RESUSCITATE. Patient was admitted for further evaluation and treatment. Cardiology was consulted. Patient was put on IV Lasix and albumin. He remained mildly confused and fatigued. He was put on empiric antibiotics. He was put on supplemental oxygen and DuoNeb's. Patient' s family decided to transition patient to hospice care due to his debilitating condition and continued decline. Case management was consulted to assist, patient was discharged to hospice care facility. Pt Condition on Discharge: Deteriorating Discharge Disposition: Hospice/Med Facility Discharge Instructions DIET: Follow Instructions for: As Tolerated, No Restrictions Activities you can perform: Continue Bedrest Continued Medications: Aspirin DR (Aspirin 81) 81 Mg Tabdr 81 MG PO mo, we, fr Ref 0 TAB Atenolol (Atenolol) 50 Mg Tab 50 MG PO DAILY Blood Pressure Management #30 Ref 0 TAB Bisacodyl Supp (Dulcolax Supp) 10 Mg Supp 10 MG RECTAL DAILY PRN CONSTIPATION #12 Ref 0 SUPP Digoxin (Digoxin) 0.125 Mg Tab 0.125 MG PO DAILY Regulate Heart Beat #30 Ref 0 TAB Furosemide (Furosemide) 40 Mg Tab 40 MG PO DAILY #30 Ref 0 TAB Lactobacillus Acidophilus (Probiotic) 1 Cap Cap 1 CAP PO DAILY Nutritional Supplement #90 Ref 0 CAP Magnesium Hydroxide Liq (Milk of Magnesia Liq) 400 Mg/5 Ml Susp 30 ML PO DAILY PRN INDIGESTION OR UPSET STOMACH #1 Ref 0 BOTTLE Mineral Oil Enema (Fleet Oil Enema) 118 Ml Enem 1 EA RECTAL DIRECTED PRN CONSTIPATION #1 Ref 0 BOTTLE Pravastatin (Pravastatin) 20 Mg Tab 20 MG PO DAILY Cholesterol Management #30 Ref 0 TAB Psyllium Powder (Metamucil Smooth Texture) 28.3 % Pow 1 SCOOP PO TID 1 rounded [place] in 8 oz of liquid at the first sign of irregularity. PRN CONSTIPATION Ref 0 CONTAINER Tamsulosin (Tamsulosin) 0.4 Mg Cap 0.4 MG PO HS Manage Prostate Problems #30 Ref 0 CAP Vitamin E (Vitamin E) 200 Unit Cap 400 UNITS PO DAILY Nutritional Supplement Ref 0 CAP Gauri Chacon Apr 12, 2017 14:08
== END 2017-04-11 18:10 | disposition hospice, inpatient (51) | DRG 291 ==
LOC: NEPC 23:06 → NEDH 04-09 01:02 → HCIS 04-09 15:22
PROVIDERS: ADMIT Specialist; ATTEND Specialist
DX: I11.0 Hypertensive heart disease with heart failure (principal); J18.9 Pneumonia, unspecified organism; R18.8 Other ascites; J44.0 Chronic obstructive pulmonary disease with (acute) lower respiratory infection; Z51.5 Encounter for palliative care; J44.1 Chronic obstructive pulmonary disease with (acute) exacerbation; E87.5 Hyperkalemia; I42.9 Cardiomyopathy, unspecified; I48.0 Paroxysmal atrial fibrillation; I45.10 Unspecified right bundle-branch block; I25.10 Atherosclerotic heart disease of native coronary artery without angina pectoris; H91.90 Unspecified hearing loss, unspecified ear; I50.23 Acute on chronic systolic (congestive) heart failure; E78.5 Hyperlipidemia, unspecified; D35.01 Benign neoplasm of right adrenal gland; R62.7 Adult failure to thrive; E16.2 Hypoglycemia, unspecified; F41.9 Anxiety disorder, unspecified; Z66 Do not resuscitate; Z86.73 Personal history of transient ischemic attack (TIA), and cerebral infarction without residual deficits; Z95.0 Presence of cardiac pacemaker; Z95.1 Presence of aortocoronary bypass graft; Z87.891 Personal history of nicotine dependence
CPT/HCPCS: 71010; 74176; 80048; 80053; 80076; 82550; 83735; 83880; 84100; 84132; 84484; 85025; 85610; 85730; 93005; 94640; 94664; 96374; 96375; J0456; J0696; J1644; J1940; J2270; J2930; J7050; P9047